=== PATIENT | female | born 1995 | race Caucasian/White ===

== ENCOUNTER 2021-06-16 11:34 | Emergency (ER) | payer OTHER ==
[~2021-06-16] VITALS: Ht 165.1 cm; Wt 63.6 kg
[2021-06-16] MEDS ORDERED: TRIKAFTA PO (12:44)
[2021-06-16] MEDS ORDERED: CREON 120000 U-1 ECC PO (12:45)
[2021-06-16 13:51] LABS: BASO # 0.04 K/mm3 (0.02-0.10); EOS # 0.09 K/mm3 (0.04-0.40); EOS % 1.3 % (1.0-5.0); HEMATOCRIT 43.5 % (37.0-47.0); HEMOGLOBIN 14.3 g/dL (12.5-16.0); LYMPH# 1.63 K/mm3 (1.50-4.00); MEAN CELL VOLUME 94 fl (78-100); MEAN CORPUSCULAR HEMOGLOBIN 31 pg (27-31); MEAN CORPUSCULAR HGB CONC 33 g/dL (33-37); MEAN PLATELET VOLUME 8.9 fl (7.4-10.4); MONO # 0.45 K/mm3 (0.20-0.80); NEU # 4.62 K/mm3 (1.40-6.50); PLATELET COUNT 270 K/mm3 (130-400); RED BLOOD COUNT 4.65 M/mm3 (4.10-5.30); RED CELL DISTRIBUTION WIDTH 12.1 % (11.5-14.5); WHITE BLOOD COUNT 6.8 K/mm3 (4.8-10.8)
[2021-06-16 13:57] LABS: POTASSIUM 4.4 mmol/L (3.5-5.1)
[2021-06-16 13:58] LABS: CALCIUM 9.9 mg/dL (8.3-10.5)
[2021-06-16 15:14] VITALS: BP 122/72
== END 2021-06-16 15:14 | disposition home or self-care (01) ==
LOC: ED 11:34
PROVIDERS: Family Medicine
DX: O03.9 Complete or unspecified spontaneous abortion without complication (principal)